=== PATIENT | female | born 1955 | race Hispanic/Latino ===

== ENCOUNTER → 2018-07-26 | Day surgery (SDC) | payer MEDICARE ==
[2018-07-20 14:28] LABS: BASOPHILS # (AUTO) 0.1 (0.0-0.1); BASOPHILS % 0.9 % (0.0-1.0); EOSINOPHILS # (AUTO) 0.3 (0.0-0.4); EOSINOPHILS % 2.7 % (0.0-6.0); HEMATOCRIT 41.9 % (34.2-44.1); HEMOGLOBIN 13.7 g/dL (12.0-16.0); LYMPHOCYTES # (AUTO) 2.7 (1.0-3.2); LYMPHOCYTES % 29.4 % (18.0-39.1); MEAN CORPUSCULAR HEMOGLOBIN 27.9 pg (28-32); MEAN CORPUSCULAR HGB CONC 32.7 g/dL (31-35); MEAN CORPUSCULAR VOLUME 85.3 fL (81-99); MONOCYTES # (AUTO) 0.6 (0.2-0.8); MONOCYTES % 6.7 % (4.4-11.3); NEUTROPHILS # (AUTO) 5.6 (2.1-6.9); PLATELET COUNT 387 x10e3/uL (140-360); RED BLOOD COUNT 4.91 x10e6/uL (3.6-5.1); RED CELL DISTRIBUTION WIDTH 13.2 % (11.7-14.4)
[2018-07-20 14:39] LABS: INR 0.79; PROTHROMBIN TIME 11.7 seconds (11.9-14.5)
[2018-07-20 14:40] LABS: PARTIAL THROMBOPLASTIN TIME 27.7 seconds (23.8-35.5)
[2018-07-20 14:47] LABS: CALCIUM 10.3 mg/dL (8.4-10.2); CREATININE, SERUM 1.05 mg/dL (0.57-1.11)
[~2018-07-26] MED LIST: CYCLOSPORINE25 MG PO; FENTANYL CITRATE/PF 100MCG/2 ML INJ ONE; FLUOXETINE HCL20 MG PO; FUROSEMIDE40 MG PO; GLIPIZIDE5 MG PO; LABETALOL HCL 20 ML ONE; LABETALOL HCL200 MG PO; MIDAZOLAM HCL 2 MG/2 ML VIAL ONE; NEXIUM40 MG PO; NIFEDIPINE ER30 M1 PO; POTASSIUM CHLO10 ME1 PO; PRAVASTATIN SOD40 MG PO; PROPOFOL IV EMULSION 10 MG/ML 50 ML VIAL ONE; RAPAMUNE1 MG PO; VITAMIN D400 UNIT PO
[2018-07-26 11:30] VITALS: BP 112/69
== END | disposition home or self-care (01) ==
LOC: OR 07:02
PROVIDERS: ATTEND Internal Medicine Gastroenterology
DX: Z12.11 Encounter for screening for malignant neoplasm of colon (principal); D12.0 Benign neoplasm of cecum; K64.8 Other hemorrhoids; I10 Essential (primary) hypertension; E78.5 Hyperlipidemia, unspecified; E11.9 Type 2 diabetes mellitus without complications; Z79.84 Long term (current) use of oral hypoglycemic drugs; Z01.810 Encounter for preprocedural cardiovascular examination; Z01.812 Encounter for preprocedural laboratory examination
CPT/HCPCS: 36415 ×2; 45384; 80048; 82948; 85025; 85610; 85730; 88305; 93005; J2250; 45378